=== PATIENT | female | born 1990 | race Caucasian/White ===

== ENCOUNTER 2019-03-10 02:21 | Inpatient (IN) | payer OTHER ==
[~2019-03-10] VITALS: Ht 162.6 cm; Wt 74.0 kg
[~2019-03-10 02:21] MED LIST: Ativan1 MG SL; BUPRENORPHINE HC2 MG PO; CEPH500 PO; CIPR500 PO; CODACE30 PO; EXPECTA PRENAT1 EACH; HYDACE5 PO; ONDA4 PO; PHENA200 PO; TRAZ50 PO
[2019-03-10 02:44] LABS: Source, Urine Clean Catch
[2019-03-10 02:46] LABS: Bilirubin, Urine Neg (Neg); Blood, Urine Neg (Neg); Glucose Qualitative, Urine Neg (Neg); Ketones, Urine Neg (Neg); Leukocyte Esterase, Urine 3+ (Neg); Nitrite, Urine Neg (Neg); Protein, Urine Neg (Neg); Urobilinogen, Urine NORM (Normal); pH, Urine 6.5 (5.0-8.0)
[2019-03-10 02:53] LABS: Appearance, Urine Hazy (Clear); Color, Urine Pale Yellow (P-Yellow)
[2019-03-10 02:55] LABS: Amorphous Light (0-Heavy); Bacteria Mod /hpf; Red Blood Cells, Urine Not Seen /hpf (0-2); Squamous Epithelial Cells Many /hpf (Few); White Blood Cells, Urine 50-100 /hpf (0-5); Yeast/Fungi Urine Rare /hpf
[2019-03-10] MEDS ORDERED: SERT25 (04:09)
[2019-03-10] MEDS ORDERED: Verotin-Gr Cap1 EACH (04:10)
[2019-03-10 05:04] LABS: U Amphetamine Screen Not Detected; U Barbituate Screen Not Detected; U Benzodiazapine Screen Not Detected; U Buprenorphine Screen Not Detected; U Cannabinoids Screen Not Detected; U Cocaine Screen Not Detected; U Methadone Screen Not Detected; U Methamphetamine Screen Not Detected; U Opiates Screen Not Detected; U Oxycodone Screen Not Detected; U Phencyclidine Screen Not Detected; U Propoxyphene Screen Not Detected
[2019-03-10 05:32] LABS: BASOPHILS ABSOLUTE AUTO 0.06 K/mm3 (0.00-0.23); BASOPHILS PERCENT AUTO 0 % (0-2); EOSINOPHILS ABSOLUTE AUTO 0.34 K/mm3 (0.00-0.68); EOSINOPHILS PERCENT AUTO 2 % (0-6); Hemoglobin 10.9 g/dL (11.5-16.0); IMMATURE GRAN ABSOLUTE AUTO 0.15 K/mm3 (0.00-0.10); IMMATURE GRAN PERCENT AUTO 1 % (0-1); LYMPHOCYTES ABSOLUTE AUTO 2.97 K/mm3 (0.84-5.20); LYMPHOCYTES PERCENT AUTO 13 % (21-46); MONOCYTES ABSOLUTE AUTO 1.82 K/mm3 (0.16-1.47); MONOCYTES PERCENT AUTO 8 % (4-13); Mean Corpuscular HGB 30.2 pg (26.0-34.0); Mean Corpuscular HGB Conc 34.1 g/dL (31.5-36.5); Mean Corpuscular Volume 89 fL (80-100); Mean Platelet Volume 10.9 fL (9.1-12.4); NEUTROPHILS PERCENT AUTO 76 % (41-73); Platelet Count 241 K/mm3 (150-400); RDW Coefficient Variation 13.3 % (11.7-14.2); RDW Standard Deviation 43.6 fL (35.1-46.3); Red Blood Cell Count 3.61 M/mm3 (3.80-5.20); White Blood Cell Count 22.54 K/mm3 (4.00-11.30)
[2019-03-11 05:47] LABS: Hematocrit 30.6 % (33.0-51.0); Hemoglobin 10.2 g/dL (11.5-16.0); Mean Corpuscular HGB 30.1 pg (26.0-34.0); Mean Corpuscular HGB Conc 33.3 g/dL (31.5-36.5); Mean Corpuscular Volume 90 fL (80-100); Mean Platelet Volume 11.1 fL (9.1-12.4); Platelet Count 230 K/mm3 (150-400); RDW Coefficient Variation 13.4 % (11.7-14.2); RDW Standard Deviation 44.6 fL (35.1-46.3); Red Blood Cell Count 3.39 M/mm3 (3.80-5.20); White Blood Cell Count 22.72 K/mm3 (4.00-11.30)
[2019-03-11] MEDS ORDERED: IBUP800 PO (14:16)
== END 2019-03-11 15:29 | disposition home or self-care (01) | DRG 806 ==
LOC: OBS 02:21 → BC 02:21 → OBS 04:32 → BC 04:33
PROVIDERS: Nurse Practitioner Obstetrics & Gynecology; ADMIT Advanced Practice Midwife
PROC: 10E0XZZ Delivery of Products of Conception, External Approach (ICD-10-PCS; principal; 2019-03-10)
PROC: 0HQ9XZZ Repair Perineum Skin, External Approach (ICD-10-PCS; 2019-03-10)
PROC: 3E0S3BZ Introduction of Anesthetic Agent into Epidural Space, Percutaneous Approach (ICD-10-PCS; 2019-03-10)
PROC: 00HU33Z Insertion of Infusion Device into Spinal Canal, Percutaneous Approach (ICD-10-PCS; 2019-03-10)
DX: O98.42 Viral hepatitis complicating childbirth (principal); B18.1 Chronic viral hepatitis B without delta-agent; Z37.0 Single live birth; F53.0 Postpartum depression; F17.210 Nicotine dependence, cigarettes, uncomplicated; Z79.899 Other long term (current) drug therapy; O70.0 First degree perineal laceration during delivery; Z3A.41 41 weeks gestation of pregnancy; O99.344 Other mental disorders complicating childbirth; O99.334 Smoking (tobacco) complicating childbirth
CPT/HCPCS: 51702; 81001; 85025; 85027; 87086; 90471; 90632; 90744; C1751; J1885; J2001; J2590; J3010; J7120

== ENCOUNTER 2019-05-11 12:44 | Day surgery (SDC) | payer OTHER ==
[~2019-05-11] VITALS: Ht 162.6 cm; Wt 68.5 kg
[~2019-05-11 12:44] MED LIST changes: +BUSP10 PO; +IBUP800 PO; +SERT50 PO; +Verotin-Gr Cap1 EACH
--- NOTE | 2019-05-11 15:05 | NUR ---
05/11/19 1504 Iris Burr 13 IV ATTEMPTS TOTAL. ALL UNSUCCESFUL. RXS LEFT FOREARM AND LEFT FOOT. AXE LEFT AC, RIGHT WRIST, RIGHT FOOT, AND RIGHT AC. OKG IN RIGHT AC AND RIGHT FOOT. JLF IN LEFT FOREARM AND RIGHT HAND. DR MONZON CONSENTED FOR AN EXTERNAL JUGULAR ACCESS. PRIOR TO CONTINUING, DR MONZON ATTEMPTED ACCESS IN THE RIGHT FOREARM AND RIGHT AC. BOTH ATTEMPTS UNSUCCESSFUL. DR MONZON USED VEIN FINDER TO ASSESS EXTERNAL JUGULAR VEIN. AFTER ASSESSMENT, PT WAS NOT A GOOD CANDIDATE. DR MONZON AND PT AGREED NOT TO ATTEMPT. PT STATES SHE NO LONGER WANTS TO CONTINUE.
== END 2019-05-11 14:41 | disposition home or self-care (01) ==
LOC: ORSCSDS 12:44
DX: Z30.2 Encounter for sterilization (principal); Z53.9 Procedure and treatment not carried out, unspecified reason
CPT/HCPCS: J2250

== ENCOUNTER 2019-05-18 15:05 | Day surgery (SDC) | payer OTHER ==
[~2019-05-18] VITALS: Ht 162.6 cm; Wt 66.7 kg
--- NOTE | 2019-05-18 15:59 | NUR ---
05/18/19 155Hubert Connolly BLOOD DRAWN DONE FOR HCG AND WAS SENT TO LAB STAT. CALL LIGHT WITHIN REACH. FAMILY AT BEDSIDE
--- NOTE | 2019-05-18 17:39 | NUR ---
05/18/19 7327 Danielle Appiah RECEIVED REPORT FROM LY BO. PATIENT IN BED, AWAKE AND ASKING QUESTIONS. DOES C/O NAUSEA AND PAIN. ZOFRAN AND FENTANYL GIVEN PER MD ORDER. PATIENT ASKING FOR SOMETHING TO DRINK. BANDAIDS IN PLACE AND PERIPAD ALL CDI
--- NOTE | 2019-05-18 17:56 | NUR ---
05/18/19 [id number] Danielle Appiah PATIENT ABLE TO TRANSFER TO [facility] IN [place] WITH VERY LITTLE HELP. SHE IS CONTINUING TO COMPLAIN OF PAIN AND I AM MEDICATING PER MD ORDER. WILL GET HER SOMETHING TO EAT SO WE CAN GIVE PO PAIN MEDS. WILL CONTINUE TO MONITOR AND PREPARE FOR DISCHARGE
== END 2019-05-18 18:41 | disposition home or self-care (01) ==
LOC: ORSCSDS 15:05
PROVIDERS: Obstetrics & Gynecology
PROC: 0UB74ZZ Excision of Bilateral Fallopian Tubes, Percutaneous Endoscopic Approach (ICD-10-PCS; principal; 2019-05-18 16:15)
DX: Z30.2 Encounter for sterilization (principal); B19.20 Unspecified viral hepatitis C without hepatic coma; F41.8 Other specified anxiety disorders; Z79.899 Other long term (current) drug therapy; F17.210 Nicotine dependence, cigarettes, uncomplicated; Z01.818 Encounter for other preprocedural examination; F32.9 Major depressive disorder, single episode, unspecified; F41.9 Anxiety disorder, unspecified; Z86.19 Personal history of other infectious and parasitic diseases
CPT/HCPCS: 84703; 88302; 99211; A9270-GY; C1751; J1100; J1885; J2250; J2405; J2704; J2710; J3010; J7120

== ENCOUNTER 2022-08-22 18:02 | Emergency (ER) | payer OTHER ==
[~2022-08-22] VITALS: Ht 162.6 cm; Wt 54.4 kg
[2022-08-22] MEDS ORDERED: SULTRIDS PO (21:28)
[2022-08-22] MEDS ORDERED: CEPH500 PO (21:28)
== END 2022-08-22 21:46 | disposition home or self-care (01) ==
LOC: ER 18:02
DX: L03.213 Periorbital cellulitis (principal); F17.210 Nicotine dependence, cigarettes, uncomplicated; Z79.899 Other long term (current) drug therapy
CPT/HCPCS: A9270; J1885